=== PATIENT | female | born 1945 | race Two or more races ===

== ENCOUNTER 2023-01-03 14:04 | Emergency (ER) | payer MEDICARE ==
--- NOTE | 2023-01-03 15:09 | XR ---
EXAMINATION TYPE: XR wrist complete 4 views RT, XR hand complete 3 views RT DATE OF EXAM: 01/03/2023 COMPARISON: NONE HISTORY: 76-year-old female pain after fall last night FINDINGS: Wrist: There is some cortical lucencies along the distal radial metadiaphysis, no periostitis is seen. Possi shawn due to aggressive osteopenia. Correlation can be made to exclude any signs/symptoms of underlying infection. If any localizing pain here, further evaluation may be indicated. There is an impacted fracture at the fifth metacarpal base dorsally displaced by 2 mm. Minimal commin ution. The radiocarpal and distal radial ulnar joint are intact. Metacarpal compartment also appears intact. Mild degenerative change first CMC and triscaphe joints. 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 Moderate at the fourth and fifth DIP joints. Additional transverse fracture just beyond the base of the fifth proximal phalanx with fink r displacement up to 4 mm and dorsal angulation. IMPRESSION: 1. Wrist and hand acute injuries: * Minimally comminuted, impacted fracture at the base of the fifth metacarpal with minimal 2 mm of d orsal displacement. * Additional transverse fracture just beyond the base of the fifth proximal phalanx with 4 mm palmar displacement and dorsal regulation. 2. Wrist and hand incidental: * Cortical lucencies along the distal radial metadiaphysis probably due to severe osteopenia. Some t ype of infiltrative process is considered less likely. Correlate to exclude the possibility of bony i nfection with and with blood tests to exclude etiologies such as multiple myeloma. * Osteoarthritic change especially in the DIP joints and to a lesser extent at the base of the thumb .
--- NOTE | 2023-01-03 15:44 | ED ---
General Adult HPI - General Chief complaint: Extremity Injury, Upper Stated complaint: Swollen Right Hand Time Seen by Provider: 01/03/23 15:22 Source: patient, RN notes reviewed Mode of arrival: ambulatory Limitations: no limitations - History of Present Illness Initial comments: 77-year-old female with no significant past medical history presents the emergency department with a chief complaint of trip and fall. She reports that she tripped and fell onto cement last night. She reports that she follow with her hands outstretched. She is complaining of right lateral hand pain and bruising. She did take one dose of Tylenol. She denies hitting her head, loss of consciousness. She denies anticoagulant use. She does take a baby aspirin daily. - Related Data Allergies Allergy/AdvReac Type Severity Reaction Status Date / Time No Known Allergies Allergy Verified 01/03/23 14:08 Review of Systems ROS Statement: Those systems with pertinent positive or pertinent negative responses have been documented in the HPI. ROS Other: All systems not noted in ROS Statement are negative. Past Medical History Past Medical History: Coronary Artery Disease (CAD) History of Any Multi-Drug Resistant Organisms: None Reported Additional Past Surgical History / Comment(s): Aortic Bypass Past Psychological History: No Psychological Hx Reported Smoking Status: Current every day smoker Past Alcohol Use History: Occasional Past Drug Use History: Marijuana General Exam - General Exam Comments Initial Comments: General: Alert, in no acute distress Head: atraumatic normocephalic. Eyes PERRL, EOMI intact, mucous membranes moist Respiratory: Lungs clear to auscultation bilaterally Cardiovascular: Rate regular rate and rhythm Abdominal: Soft without guarding or rebound Extremities: Normal inspection with full range of motion and normal capillary refill, right hand with diffuse ecchymosis on top of the fifth metatarsal carpal region. Imaging range of motion secondary to pain. Distal neurovascularly intact. 2+ radial pulses. Neuroogic: alert and oriented 3, CN II-XII intact, able to ambulate with steady gait Skin: warm dry and intact with normal color Limitations: no limitations Course Vital Signs 01/03/23 01/03/23 14:06 16:24 Temperature 97.9 F 98 F Pulse Rate 90 78 Respiratory 20 18 Rate Blood Pressure 177/77 150/74 O2 Sat by Pulse 98 99 Oximetry Procedures - Orthopedic Splinting/Casting Injury #1 Side: right Upper Extremity Injury Location: hand Upper Extremity Immobilizer: ulnar gutter Additional Comments: Patient distal neurovascularly intact status post placement Medical Decision Making - Medical Decision Making Was pt. sent in by a medical professional or institution ([facility], STRAIGHT EDGER, urgent care, hospital, or fci...) When possible be specific @ -[No] Did you speak to anyone other than the patient for history (EMS, parent, family, police, friend...)? What history was obtained from this source @ -[No] Did you review nursing and triage notes (agree or disagree)? Why? @ -[I reviewed and agree with nursing and triage notes] Were old charts reviewed (outside hosp., previous admission, EMS record, old EKG, old radiological studies, urgent care reports/EKG's, fci records)? Report findings @ -[No old charts were reviewed] Differential Diagnosis (chest pain, altered mental status, abdominal pain women, abdominal pain men, vaginal bleeding, weakness, fever, dyspnea, syncope, headache, dizziness, GI bleed, back pain, seizure, CVA, palpatations, mental health, musculoskeletal)? @ -[not applicable] EKG interpreted by me (3pts min.). @ -[As above] X-rays interpreted by me (1pt min.). @ Right hand x-ray reveals a minimally comminuted impacted fracture at the base of the fifth metacarpal with minimal 2 mm dorsal displacement there is an additional transverse fracture just at the base of the fifth proximal phalanx with 4 mm palmar displacement and dorsal regulation CT interpreted by me (1pt min.). @ -[None done] U/S interpreted by me (1pt. min.). @ -[None done] What testing was considered but not performed or refused? (CT, X-rays, U/S, labs)? Why? @ -[None] What meds were considered but not given or refused? Why? @ -[None] Did you discuss the management of the patient with other professionals (professionals i.e. [facility], STRAIGHT EDGER, lab, RT, psych nurse, director social service, engineering director, teacher, cavalry officer, case packer and sealer)? Give summary @ -[No] Was smoking cessation discussed for >3mins.? @ -[No] Was critical care preformed (if so, how long)? @ -[No] Were there social determinants of health that impacted care today? How? (Homelessness, low income, unemployed, alcoholism, drug addiction, transportation, low edu. Level, literacy, decrease access to med. care, residential, rehab)? @ -[No] Was there de-escalation of care discussed even if they declined (Discuss DNR or withdrawal of care, Hospice)? DNR status @ -[No] What co-morbidities impacted this encounter? (DM, HTN, Smoking, COPD, CAD, Cancer, CVA, ARF, Chemo, Hep., AIDS, mental health diagnosis, sleep apnea, morbid obesity)? @ -[None] Was patient admitted / discharged? Hospital course, mention meds given and route, prescriptions, significant lab abnormalities, going to OR and other pertinent info. @ -Discharged. This is a pleasant 77-year-old female who presents the emergency department with hand pain. Patient had a thorough history and physical exam performed on the emergency department. Physical exam is essentially unremarkable. Heart rate regular rate and rhythm. Lungs clear to auscultation bilaterally abdomen soft with mild tenderness. Right hand with lateral ecchymosis and tenderness. 2+ radial pulses. Distal neurovascular intact. Patient had x-rays which revealed metacarpal fracture. He should was placed in an ulnar gutter splint. She tolerated well. Distal neurovascularly intact status post placement. I discussed results in detail with the patient verbalized understanding all questions were addressed. She was given Toradol and 1 L of IV fluids with mild symptomatic relief. She is agreeable with the plan for discharge. All questions were addressed with recommended close follow- up with PCP in 1-2 days.. Patient discharged in stable condition. Case discussed with FERNANDO Zheng who agrees with plan of care Undiagnosed new problem with uncertain prognosis? @ -[No] Drug Therapy requiring intensive monitoring for toxicity (Heparin, Nitro, Insulin, Cardizem)? @ -[No] Were any procedures done? @ -[No] Diagnosis/symptom? @ -R Metacarpal fx - Fall Acute, or Chronic, or Acute on Chronic? @ -Acute Uncomplicated (without systemic symptoms) or Complicated (systemic symptoms)? @ -Uncomplicated Side effects of treatment? @ -[No] Exacerbation, Progression, or Severe Exacerbation? @ -[No] Poses a threat to life or bodily function? How? (Chest pain, [place], [place], pneumonia, PE, COPD, DKA, ARF, appy, cholecystitis, CVA, Diverticulitis, Homicidal, Suicidal, threat to staff... and all critical care pts) @ -Low likelihood Disposition Clinical Impression: Closed fracture of 5th metacarpal Disposition: HOME SELF-CARE Condition: Stable Instructions (If sedation given, give patient instructions): Hand Fracture (ED) Additional Instructions: Please return to the nearest emergency department if symptoms worsen or persist Is patient prescribed a controlled substance at d/c from ED?: No Referrals: Cristiano Kohli MD [Primary Care Provider] - 1-2 days Tonia Booth DO [Doctor of Osteopathic Medicine] - 1-2 days Time of Disposition: 15:43
[2023-01-03 16:25] VITALS: BP 150/74; PULSE 78; RESP 18; TEMP 98
== END 2023-01-03 16:26 | disposition home or self-care (01) ==
LOC: EC 14:04
DX: S62.306A Unspecified fracture of fifth metacarpal bone, right hand, initial encounter for closed fracture (principal); I25.10 Atherosclerotic heart disease of native coronary artery without angina pectoris; F17.200 Nicotine dependence, unspecified, uncomplicated; F12.90 Cannabis use, unspecified, uncomplicated; W01.0XXA Fall on same level from slipping, tripping and stumbling without subsequent striking against object, initial encounter
CPT/HCPCS: 29125; 99283